=== PATIENT | male | born 1985 | race Two or more races ===

== ENCOUNTER → 2025-05-24 | Outpatient (BNVA) | payer MEDICAID, SELFPAY | END | disposition home or self-care (01) | PROVIDERS: PCP Nurse Practitioner Family; Referring Provider Nurse Practitioner Family; Visit Provider Nurse Practitioner Family | DX: H66.91 Otitis media, unspecified, right ear (principal); H60.91 Unspecified otitis externa, right ear; F10.10 Alcohol abuse, uncomplicated | CPT/HCPCS: 96372; 99214; A4216; J0696 ==

== ENCOUNTER → 2025-05-26 | Outpatient (BNVA) | payer MEDICAID, SELFPAY | END | disposition home or self-care (01) | PROVIDERS: PCP Nurse Practitioner Family; Referring Provider Nurse Practitioner Family; Visit Provider Nurse Practitioner Family | DX: Z09 Encounter for follow-up examination after completed treatment for conditions other than malignant neoplasm (principal); H83.01 Labyrinthitis, right ear; H66.91 Otitis media, unspecified, right ear; F10.10 Alcohol abuse, uncomplicated | CPT/HCPCS: 99213 ==

== ENCOUNTER → 2025-07-05 | Outpatient (BNVA) | payer MEDICAID, SELFPAY | END | disposition home or self-care (01) | PROVIDERS: PCP Nurse Practitioner Family; Referring Provider Nurse Practitioner Family; Visit Provider Nurse Practitioner Family | DX: Z00.01 Encounter for general adult medical examination with abnormal findings (principal); M25.561 Pain in right knee; Z13.9 Encounter for screening, unspecified; Z13.220 Encounter for screening for lipoid disorders; R35.1 Nocturia; M10.9 Gout, unspecified; Z11.3 Encounter for screening for infections with a predominantly sexual mode of transmission; F10.10 Alcohol abuse, uncomplicated; Z28.21 Immunization not carried out because of patient refusal; Z91.199 Patient's noncompliance with other medical treatment and regimen due to unspecified reason; E66.3 Overweight; Z68.29 Body mass index [BMI] 29.0-29.9, adult | CPT/HCPCS: 99173; 99215 ==

== ENCOUNTER → 2025-07-06 | Outpatient (CLI) | payer MEDICAID, SELFPAY ==
--- NOTE | 2025-07-06 09:30 | XR_ITS ---
Examination: Knee, right, 3 views Technique: Knee AP, lateral, oblique 3 views Date and time of exam: July 06, 2025, 0938 hours INDICATION: Right knee pain beginning 2 weeks ago. FINDINGS: No fracture or dislocation No foreign body No significant arthritic change IMPRESSION: No fracture or significant arthritic change
== END | disposition home or self-care (01) ==
LOC: CDIM 09:20
PROVIDERS: PCP Nurse Practitioner Family; Referring Provider Nurse Practitioner Family; Visit Provider Nurse Practitioner Family
DX: M25.561 Pain in right knee (principal)
CPT/HCPCS: 73562

== ENCOUNTER → 2025-07-15 | Outpatient (BNVA) | payer MEDICAID, SELFPAY | END | disposition home or self-care (01) | PROVIDERS: PCP Nurse Practitioner Family; Referring Provider Nurse Practitioner Family; Visit Provider Nurse Practitioner Family | DX: Z71.2 Person consulting for explanation of examination or test findings (principal); E78.5 Hyperlipidemia, unspecified; M10.9 Gout, unspecified; E55.9 Vitamin D deficiency, unspecified | CPT/HCPCS: 99212; G0463 ==